=== PATIENT | male | born 1980 | race Caucasian/White ===

== ENCOUNTER 2018-09-08 14:56 | Emergency (ER) | payer MEDICAID, SELFPAY ==
[2018-09-08 14:56] VITALS: BP 146/89; PULSE 95; RESP 16; TEMP 36.4; O2SAT 98; BMI 30.8
[2018-09-08 15:34] LABS: Bacteria 0 SEEN /hpf (None Seen); Mucous, Urine 0 SEEN /hpf (<or=2+); Squamous Epithelial Cells - UA 0 SEEN /hpf (0-5); White Blood Cells 0 SEEN /hpf (0-5)
[2018-09-08] MEDS: Ondansetron 4 MG/2 ML Vial IV (15:36)
[2018-09-08] MEDS: Ketorolac 30 MG/ML Syringe IV (15:36)
[2018-09-08] MEDS: 0.9% Normal Saline 1,000 ML 1000 ML IV (15:36)
[2018-09-08 15:38] LABS: Absolute Lymphocyte Count 2.22 X10^3/ul (0.83-4.51); Absolute Neutrophil Count 6.3 X10^3/uL (2.0-7.7); Basophil# 0.03 X10^3/uL; Basophil% 0.3 % (0-1); Eosinophil# 0.35 X10^3/uL; Eosinophils% 3.5 % (0-5); Hematocrit 45.7 % (40-54); Hemoglobin 15.1 g/dl (13.0-16.5); Lymphocyte # 2.22 X10^3/ul (4.0); Mean Corpuscular Hgb 28.5 pg (27.0-32.0); Mean Corpuscular Volume 86.4 fL (80-94); Mean Platelet Vol. 9.6 fl (6.2-12.0); Monocyte# 1.06 X10^3/uL; Monocyte% 10.5 % (0-10); Neutrophil # 6.33 X10^3/uL (2.7-7.7); Neutrophil % 62.9 % (47-70); POSITIVE COUNT NO; POSITIVE DIFFERENTIAL NO; POSITIVE MORPHOLOGY NO; Platelet Count 217 K/mm3 (150-450); RBC Distribution Width CV 13.3 % (11.6-14.6); RBC Distribution Width SD 41.8 fl (35.1-43.9); Red Blood Count 5.29 M/mm3 (4.6-6.2); White Blood Count 10.1 K/mm3 (4.4-11.0)
[2018-09-08 15:43] LABS: Color, Urine Yellow (Yellow); Glucose, Dipstick Normal (Normal); Ketone-Dipstick Negative (Negative); Leukocyte Esterase-Dipstick Negative /ul (Negative); Nitrite-Dipstick Negative (Negative); Occult Blood-Urine 250 /ul (Negative); Protein-Dipstick 15 mg/dl (Negative); Specific Gravity, Urine 1.025 (1.002-1.030); Urine Bilirubin Dipstick Negative (Negative); Urine Clarity Clear (Clear); Urine Urobilinogen Normal (Normal)
[2018-09-08 15:50] LABS: Anion Gap 7 (5-15); BUN 15 mg/dL (7-18); BUN/Creat Ratio 13.8 RATIO (10-20); Calcium,Total 8.8 mg/dL (8.5-10.1); Chloride 105 mmol/L (98-107); Creatinine, Serum 1.09 mg/dL (0.70-1.30); EST Glomerular Filtration Rate 81 mL/min (>60); Est Glom Filt Rate - Afr Amer 98 mL/min (>60); Estimated Creatinine Clearance 96.74 ml/min; Glucose 115 mg/dL (74-106); Potassium 3.9 mmol/L (3.5-5.1); Sodium Level 139 mmol/L (136-145)
[2018-09-08 15:53] LABS: Red Blood Cells-Urine 0-5 SEEN /hpf (0-5)
--- NOTE | 2018-09-08 15:57 | ED.VISSUMM ---
- ER Visit Summary Date of Service: 09/08/18 Chief Complaint: Flank pain History of Present Illness: The patient is a 37 M with right sided flank pain. The patient was seen at [facility] and had a CT of his flank and mid July that showed a 7 mm calculus at his distal right ureter. He was referred to urology for follow-up and has surgery scheduled for later this month. He presents today with increasing pain. 8 out of 10. Radiates to his right testicle. No other symptoms or concerns. Physical Examination: Afebrile and vital signs unremarkable. Alert and oriented. No acute distress. Right CVA tenderness. Otherwise exam unremarkable. Test Results: Urinalysis showed blood but no other signs of infection or other problems. White count normal. Metabolic panel normal. Emergency Department Course and Treatment: Patient treated with fluids, Zofran, Toradol. Pain was 3 out of 10 on reevaluation. He was requesting discharge. He will be given a prescription for Percocet, Flomax, Zofran. I was going to refer him to Dr. Park but he says that Dr. Park does not accept his insurance. He will call his established urologist for follow-up. Treatment Plan: As above Disposition: Discharge Impression: 1. Ureteral colic right side This note was generated with [employer] dictation software. It may contain incorrect words, spelling, and punctuation that were not noted in review of the chart prior to signing ED Disposition - Plan for ED Patient: Referrals: Care Physician,No Primary [Primary Care Provider] -
--- NOTE | 2018-09-08 16:01 | ED.DCSUM_ITS ---
- ER Visit Summary Date of Service: 09/08/18 Chief Complaint: Flank pain History of Present Illness: The patient is a 37 M with right sided flank pain. The patient was seen at [facility] and had a CT of his flank and mid July that showed a 7 mm calculus at his distal right ureter. He was referred to urology for follow-up and has surgery scheduled for later this month. He presents today with increasing pain. 8 out of 10. Radiates to his right testicle. No other symptoms or concerns. Physical Examination: Afebrile and vital signs unremarkable. Alert and oriented. No acute distress. Right CVA tenderness. Otherwise exam unremarkable. Test Results: Urinalysis showed blood but no other signs of infection or other problems. White count normal. Metabolic panel normal. Emergency Department Course and Treatment: Patient treated with fluids, Zofran, Toradol. Pain was 3 out of 10 on reevaluation. He was requesting discharge. He will be given a prescription for Percocet, Flomax, Zofran. I was going to re garrett him to Dr. Park but he says that Dr. Park does not accept his insurance. He will call his established urologist for follow-up. Treatment Plan: As above Disposition: Discharge Impression: 1. Ureteral colic right side This note was generated with [employer] dictation software. It may contain incorrect words, spelling, and punctuation that were not noted in review of the chart prior to signing ED Disposition - Plan for ED Patient: Referrals: Care Physician,No Primary [Primary Care Provider] -
--- NOTE | 2018-09-08 16:01 | ED.DEP ---
ED Disposition - Plan for ED Patient: Instructions: ED Stone Renal W Colic Prescriptions: Oxycodone HCl/Acetaminophen [Percocet 5/325] 1 tab PO Q6H PRN PRN 3 Days #12 tab PRN Reason: Pain Ondansetron [Zofran Odt] 4 mg PO Q8H PRN PRN #10 tab PRN Reason: Nausea Tamsulosin HCl [Flomax] 0.4 mg PO DAILY #7 cap
== END 2018-09-08 16:14 | disposition home or self-care (01) ==
LOC: ED 15:39
PROVIDERS: Emergency Provider Emergency Medicine
DX: N20.1 Calculus of ureter (principal)
CPT/HCPCS: 80048; 81001; 85025; 96361; 96374; 96375; 99283; J2405